=== PATIENT | male | born 1990 | race Caucasian/White ===

== ENCOUNTER 2021-10-30 13:11 | Emergency (ER) | payer OTHER ==
[~2021-10-30 13:11] MED LIST: AUGMENTIN 875-1 EACH PO; BACTROBAN OINT22 GM EXT; FLONASE 0.05% N16 GM; IBUPROFEN600 MG PO; KEFLEX CAP 500500 MG PO
== END 2021-10-30 16:00 | disposition home or self-care (01) ==
LOC: ER1 13:11
DX: S70.02XA Contusion of left hip, initial encounter (principal); S60.512A Abrasion of left hand, initial encounter; S60.511A Abrasion of right hand, initial encounter; Z23 Encounter for immunization; S50.312A Abrasion of left elbow, initial encounter; S80.812A Abrasion, left lower leg, initial encounter; X58.XXXA Exposure to other specified factors, initial encounter
CPT/HCPCS: 73080; 73120; 73502; 73610; 90471; 90715; 99283

== ENCOUNTER 2021-12-01 17:25 | Emergency (ER) | payer OTHER ==
[2021-12-01] MEDS ORDERED: CLEOCIN HCL300 MG PO (20:30)
== END 2021-12-01 21:01 | disposition home or self-care (01) ==
LOC: ER1 17:25
DX: K04.7 Periapical abscess without sinus (principal)
CPT/HCPCS: 96374; 99282